=== PATIENT | female | born 1990 | race Caucasian/White ===

== ENCOUNTER 2021-05-07 06:48 | Emergency (ER) | payer OTHER ==
[~2021-05-07] VITALS: Ht 167.6 cm; Wt 181.4 kg
[2021-05-07 06:50] VITALS: BP 160/100
--- NOTE | 2021-05-07 06:50 | NUR ---
TO BED AMBULATORY
--- NOTE | 2021-05-07 06:55 | NUR ---
31 Y/O CAME TO THE ED C/O CHEST PAIN THAT STARTED 2 HOURS AGO. PT STATES, "I HAVE A CHEST PAIN OF 10/10 THAT RADIATES TO MY LT ARM THAT LASTS TO 1.5 HOUR.I ALSO HAVE SOB" DENIES N/V/D; SKIN IS PINK/WARM/DRY; AAOX4 WITH EVEN AND STEADY GAIT; LUNGS CLEAR BL; HR EVEN AND REGULAR; PT DENIES ANY FEVER, OR COUGH AT THIS TIME; VSS; PATIENT POSITIONED FOR COMFORT; HOB ELEVATED; BEDRAILS UP X2; BED DOWN. ER MD MADE AWARE OF PT STATUS. PMH: GALLBLADDER REMOVAL ISAI
[2021-05-07] MEDS ORDERED: KETOROLAC 30 MG/ML VIAL IVP ONE (07:15)
[2021-05-07] MEDS ORDERED: ASPIRIN 81 MG TAB.CHEW PO ONE (07:15)
--- NOTE | 2021-05-07 07:20 | NUR ---
GIVEN REPORT TO HEBER AARON. TRANSFER OF CARE THIS TIME.
--- NOTE | 2021-05-07 07:33 | NUR ---
X RAY AT BEDSIDE.
[2021-05-07 08:49] LABS: BASOPHILS % (AUTO) 0.6 % (0.0-2.0); EOSINOPHILS # (AUTO) 0.1 K/uL (0-0.4); HEMATOCRIT 42.2 % (36-48); LYMPHOCYTES # (AUTO) 2.2 K/uL (2.5-16.5); LYMPHOCYTES % (AUTO) 37.5 % (20.5-51.1); MEAN CORPUSCULAR HEMOGLOBIN 30 pg (27-31); MEAN CORPUSCULAR HGB CONC 33 g/dL (33-37); MEAN CORPUSCULAR VOLUME 91.1 fL (80-94); MONOCYTES # (AUTO) 0.4 K/uL (0.8-1.0); MONOCYTES % (AUTO) 6.5 % (1.7-9.3); NEUTROPHILS # (AUTO) 3.1 K/uL (1.8-7.7); NEUTROPHILS % (AUTO) 53.4 % (42.2-75.2); PLATELET COUNT (AUTO) 235 K/uL (140-450); RED BLOOD CELL COUNT(AUTO) 4.63 MIL/uL (4.20-5.40); RED CELL DISTRIBUTION WIDTH 13.2 % (11.6-13.7); WHITE BLOOD COUNT (AUTO) 5.7 K/uL (4.8-10.8)
[2021-05-07 09:01] LABS: ANION GAP 12.9 (8-16); CARBON DIOXIDE 25.9 mmol/L (21-32); CREATININE 0.8 mg/dL (0.6-1.3); POTASSIUM 3.8 mmol/L (3.5-5.1); TOTAL BILIRUBIN 0.6 mg/dL (0.0-1.0)
[2021-05-07] MEDS ORDERED: NAPR-1704 PO (13:13)
[2021-05-07 13:39] VITALS: BP 118/40
== END 2021-05-07 13:40 | disposition home or self-care (01) ==
LOC: MED 06:48
DX: R07.89 Other chest pain (principal); R10.9 Unspecified abdominal pain; F14.90 Cocaine use, unspecified, uncomplicated; F43.9 Reaction to severe stress, unspecified; M79.601 Pain in right arm; F12.90 Cannabis use, unspecified, uncomplicated; Z79.899 Other long term (current) drug therapy; Z90.49 Acquired absence of other specified parts of digestive tract
CPT/HCPCS: 36415; 71045; 80053; 81025; 83690; 83880; 84484; 85025; 85379; 93005; 96374; 99285; J1885